=== PATIENT | male | born 1985 | race Caucasian/White ===

== ENCOUNTER 2021-09-22 19:50 | Emergency (ER) | payer SELFPAY ==
[2021-09-22] MEDS ORDERED: Haloperidol Lactate 5 MG/ML SDV IM ONE (20:41)
[2021-09-22] MEDS ORDERED: Benztropine 1 MG Tab PO STA (20:41)
--- NOTE | 2021-09-22 20:50 | EDM.PDOC ---
ED HPI GENERAL MEDICAL PROBLEM - General Chief Complaint: Chest Pain Stated Complaint: CHEST PAIN/NUMBESS LEFT HAND Time Seen by Provider: 09/22/21 19:56 Source of Information: Reports: Patient, Significant Other (Girlfriend) History Limitations: Reports: No Limitations - History of Present Illness INITIAL COMMENTS - FREE TEXT/NARRATIVE: Mr. Resendiz is a very pleasant 35-year-old gentleman who now presents to the ED stating that he felt left upper chest, left axillary, and left upper extremity pain when he woke up around 06:00 this morning. He states that his left upper extremity feels weaker, and that numbness to all 5 of his fingertips has been coming and going all day, typically lasting for a few minutes, then recurring a few minutes later. He states that he developed a central, sharp headache around 19:00 tonight. He denies any vision changes. He has not had any nausea, vomiting, or diaphoresis. He is unsure if he feels dyspneic. He states that he feels tired. No prior similar symptoms. The patient states that he took 200 mg of ibuprofen around 10:30 this morning, then to full-strength aspirin around 15:00 this afternoon. Here in the ED tonight, the patient is found to be hemodynamically stable, afebrile, saturating 99% on room air. He appears to be comfortable, in no acute distress. Prior to 6:00 this morning, the patient denies having a recent fever, chills, sore throat, ear pain, nasal or sinus congestion, cough, dyspnea, chest pain, palpitations, nausea, vomiting, constipation, diarrhea, abdominal pain, urinary symptoms, recent weight gain or weight loss, recent bloody bowel movements or black bowel movements, recent joint aches, headaches, or rashes. The patient does not recall the name of his PCP at [facility]. He has received 2 COVID vaccinations, although no influenza vaccination this season. Left Chest Pain Score (Numeric/FACES): 8 - Related Data Allergies Allergy/AdvReac Type Severity Reaction Status Date / Time respiridal Allergy Severe Seizure Uncoded 09/22/21 20:08 Home Meds: Home Meds Rizatriptan Benzoate [Rizatriptan] 1 tab PO Q2H PRN #3 tab.rapdis 09/22/21 [Rx] buPROPion [Wellbutrin] 300 mg PO DAILY 09/22/21 [History] valACYclovir HCl [Valtrex] 500 mg PO DAILY 09/22/21 [History] Past Medical History Cardiovascular History: Reports: High Cholesterol (untreated) Musculoskeletal History: Reports: Fracture (T12, right ankle), Other (See Below) Psychiatric History: Reports: Depression - Infectious Disease History Infectious Disease History: Reports: Chicken Pox, Herpes - Past Surgical History HEENT Surgical History: Reports: Oral Surgery (dental extractions) Neurological Surgical History: Reports: Spinal Fusion (T11-L1 2012) Musculoskeletal Surgical History: Reports: Arthroscopic Knee (right, 2005), ORIF (right ankle) Social & Family History - Tobacco Use Tobacco Use Status *Q: Never Tobacco User - Caffeine Use Caffeine Use: Reports: Coffee - Alcohol Use Alcohol Use History: No - Recreational Drug Use Recreational Drug Use: No - Living Situation & Occupation Living situation: Reports: , Alone Occupation: Employed (trailer tank truck driver) ED ROS GENERAL - Review of Systems Review Of Systems: Comprehensive ROS is negative, except as noted in HPI. ED EXAM, GENERAL - Physical Exam Exam: See Below Exam Limited By: No Limitations General Appearance: Alert, WD/WN, No Apparent Distress Eye Exam: Bilateral Eye: EOMI, Normal Inspection, PERRL Ears: Normal External Exam, Normal Canal, Hearing Grossly Normal, Normal TMs Nose: Normal Inspection, No Blood, Other (Left nasal mucosal edema) Throat/Mouth: Normal Inspection, Normal Lips, Normal Teeth, Normal Gums, Normal Oropharynx, Normal Voice, No Airway Compromise Head: Atraumatic, Normocephalic Neck: Normal Inspection, Supple, Non-Tender, Full Range of Motion, Other (No modification of the patient's left axillary/left upper extremity symptoms with the patient turning his head completely to the left or right, fully extending, or flexing his neck, or with neck compression) Respiratory/Chest: No Respiratory Distress, Lungs Clear, Normal Breath Sounds, No Accessory Muscle Use, Other (Reproducible tenderness to palpation of the left upper chest) Cardiovascular: Normal Peripheral Pulses, Regular Rate, Rhythm, No Edema, No Gallop, No JVD, No Murmur, No Rub Peripheral Pulses: 3+: Radial (L), Radial (R) GI/Abdominal: Normal Bowel Sounds, Soft, Non-Tender, No Organomegaly, No Distention, No Abnormal Bruit, No Mass Back Exam: Normal Inspection, Full Range of Motion, NT Extremities: Normal Inspection, Normal Range of Motion, No Pedal Edema, Normal Capillary Refill, Other (Reproducible tenderness to palpation of the left axilla) Neurological: Alert, Oriented, CN II-XII Intact, Normal Cognition, Other (Mild weakness to abduction of the left upper extremity, otherwise no focal neurologic deficits. The patient reports some tingling to all 5 fingertips.) Psychiatric: Normal Affect Skin Exam: Warm, Dry, Intact, Normal Color, No Rash #1 Interpretation EKG Date: 09/22/21 Time: 19:57 Rhythm: NSR Rate (Beats/Min): 63 [place]: Normal (Borderline RAD) P-Wave: Present QRS: RBBB (Incomplete. LVH.) ST-T: Elevated (J-point elevation V2V6, inferior leads, but no ischemic changes) QT: Normal Comparison: NA - No Prior EKG Course - Vital Signs Last Recorded V/S: Last Vital Signs Temp 36.7 C 09/22/21 22:17 Pulse 80 09/22/21 22:17 Resp 18 09/22/21 22:17 BP 116/75 09/22/21 22:17 Pulse Ox 100 09/22/21 22:17 - Orders/Labs/Meds Labs: Laboratory Tests 09/22/21 09/22/21 09/22/21 Range/Units 20:40 20:53 20:53 WBC 6.06 (4.23-9.07) K/mm3 RBC 4.98 (4.63-6.08) M/mm3 Hgb 15.1 (13.7-17.5) gm/dl Hct 43.5 (40.1-51.0) % MCV 87.3 (79.0-92.2) fl MCH 30.3 (25.7-32.2) pg MCHC 34.7 (32.2-35.5) g/dl RDW Std Deviation 40.1 (35.1-43.9) fL Plt Count 190 (163-337) K/mm3 MPV 10.6 (9.4-12.3) fl Neutrophils % (Manual) 60 (40-60) % Band Neutrophils % 0 (0-10) % Lymphocytes % (Manual) 28 (20-40) % Atypical Lymphs % 0 % Monocytes % (Manual) 10 (2-10) % Eosinophils % (Manual) 2 (0.8-7.0) % Basophils % (Manual) 0 L (0.2-1.2) Platelet Estimate Adequate Plt Morphology Comment Normal RBC Morph Comment Normal D-Dimer, Quantitative (0.19-0.50) mg/L Sodium 143 (136-145) mEq/L Potassium 4.1 (3.5-5.1) mEq/L Chloride 106 (98-107) mEq/L Carbon Dioxide 30 (21-32) mEq/L Anion Gap 11.1 (5-15) BUN 19 H (7-18) mg/dL Creatinine 1.4 H (0.7-1.3) mg/dL Est Cr Clr Drug Dosing 79.29 mL/min Estimated GFR (MDRD) 57 (>60) mL/min BUN/Creatinine Ratio 13.6 L (14-18) Glucose 94 (70-99) mg/dL Calcium 8.9 (8.5-10.1) mg/dL Magnesium 2.0 (1.8-2.4) mg/dL Total Bilirubin 0.4 (0.2-1.0) mg/dL AST 29 (15-37) U/L ALT 36 (16-63) U/L Alkaline Phosphatase 50 (46-116) U/L Troponin I < 0.017 (0.00-0.056) ng/mL C-Reactive Protein <0.2 (<1.0) mg/dL Total Protein 7.1 (6.4-8.2) g/dl Albumin 4.0 (3.4-5.0) g/dl Globulin 3.1 gm/dL Albumin/Globulin Ratio 1.3 (1-2) SARS-CoV-2 RNA (TYRONE) Negative (NEGATIVE) 09/22/21 Range/Units 20:53 WBC (4.23-9.07) K/mm3 RBC (4.63-6.08) M/mm3 Hgb (13.7-17.5) gm/dl Hct (40.1-51.0) % MCV (79.0-92.2) fl MCH (25.7-32.2) pg MCHC (32.2-35.5) g/dl RDW Std Deviation (35.1-43.9) fL Plt Count (163-337) K/mm3 MPV (9.4-12.3) fl Neutrophils % (Manual) (40-60) % Band Neutrophils % (0-10) % Lymphocytes % (Manual) (20-40) % Atypical Lymphs % % Monocytes % (Manual) (2-10) % Eosinophils % (Manual) (0.8-7.0) % Basophils % (Manual) (0.2-1.2) Platelet Estimate Plt Morphology Comment RBC Morph Comment D-Dimer, Quantitative 0.23 (0.19-0.50) mg/L Sodium (136-145) mEq/L Potassium (3.5-5.1) mEq/L Chloride (98-107) mEq/L Carbon Dioxide (21-32) mEq/L Anion Gap (5-15) BUN (7-18) mg/dL Creatinine (0.7-1.3) mg/dL Est Cr Clr Drug Dosing mL/min Estimated GFR (MDRD) (>60) mL/min BUN/Creatinine Ratio (14-18) Glucose (70-99) mg/dL Calcium (8.5-10.1) mg/dL Magnesium (1.8-2.4) mg/dL Total Bilirubin (0.2-1.0) mg/dL AST (15-37) U/L ALT (16-63) U/L Alkaline Phosphatase (46-116) U/L Troponin I (0.00-0.056) ng/mL C-Reactive Protein (<1.0) mg/dL Total Protein (6.4-8.2) g/dl Albumin (3.4-5.0) g/dl Globulin gm/dL Albumin/Globulin Ratio (1-2) SARS-CoV-2 RNA (TYRONE) (NEGATIVE) Meds: Medications Discontinued Medications Generic Name Dose Route Start Last Admin Trade Name Freq PRN Reason Stop Dose Admin Benztropine Mesylate 1 mg 09/22/21 20:41 09/22/21 20:52 Benztropine 1 Mg Tab PO 09/22/21 20:42 1 mg ONETIME STA Administration Haloperidol Lactate 5 mg 09/22/21 20:41 09/22/21 20:53 Haloperidol Lactate 5 Mg/Ml Sdv IM 09/22/21 20:42 5 mg ONETIME ONE Administration - Re-Assessments/Exams Free Text/Narrative Re-Assessment/Exam: 09/22/21 20:46 The cause of the patient's symptoms is not immediately clear. Cervical radiculopathy has essentially been ruled out, but I cannot rule out a brachial plexus injury. It could also be a migraine. An ECG, obtained at triage, demonstrates diffuse J-point elevations, but no ischemic changes. I have ordered a work-up that includes numerous blood tests, a swab for the SARS-CoV-2 virus, a chest x-ray, and a CT of the head without contrast. In the meantime, the patient will be treated with IM Haldol and oral Cogentin, to see if that modifies his symptoms. 09/22/21 21:41 CT of the head without contrast is read by Vee as "No acute intracranial abnormality." 09/22/21 21:56 Two-view chest radiograph appears to be grossly normal. The cardiac silhouette is within normal limits. No pulmonary vascular congestion. No pleural effusio ns. No focal infiltrate. No pneumothorax. T11, T12, L1 fusion hardware noted. Formal read per the Radiologist pending. The patient's CBC is unremarkable. His CMP is remarkable for a BUN/Cr slightly elevated at 19/1.4, with the remainder of his CMP being unremarkable. His magnesium level is within normal limits at 2.0. His CRP is undetectably low. His troponin is undetectably low. His D-dimer is within normal limits at 0.23. His swab for the SARS-CoV-2 virus is negative. 09/22/21 22:02 Test results discussed with the patient and his girlfriend. The patient reports complete resolution of his symptoms - his headache, as well as his left axillary pain and left upper extremity tingling/numbness. This confirms that his symptoms were due to a migraine. 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 Departure - Departure Time of Disposition: 22:02 Disposition: Home, Self-Care 01 Condition: Good Clinical Impression: Migraine without aura - Discharge Information *PRESCRIPTION DRUG MONITORING PROGRAM REVIEWED*: Not Applicable *COPY OF PRESCRIPTION DRUG MONITORING REPORT IN PATIENT OLIVIA: Not Applicable Prescriptions: Rizatriptan Benzoate [Rizatriptan] 1 tab PO Q2H PRN #3 tab.rapdis PRN Reason: Headache Instructions: Migraine Headache, [id number] Referrals: PCP,Unknown [Primary Care Provider] - Forms: ED Department Discharge Additional Instructions: You were seen in the emergency room after developing left upper chest, left armpit, and left upper arm pain, along with tingling and numbness to your left fingertips, with a weak feeling in your left arm, and a headache. Work-up in the ER included numerous blood tests, a swab for the SARS-CoV-2 virus, a chest x-ray, a CT of your head, and an ECG. Your entire work-up was unremarkable. No abnormalities were found. Your symptoms resolved after you were given the neuroleptic medication Haldol, confirming that your symptoms were due to a migraine. We recommend that you stay adequately hydrated and get plenty of rest tonight in a dark, quiet place. You may resume your usual activities tomorrow. A prescription for the anti-migraine medicine rizatriptan (Maxalt) has been sent to [facility], located in the [facility] across the [address] from the hospital. Dissolve 1 tablet in your mouth, like a lozenge, at the earliest onset of migraine symptoms. You may repeat after 2 hours, if necessary, to a maximum of 3 tablets within a 24-hour period. If any other problems, please do not hesitate to return to the ER.
--- NOTE | 2021-09-23 06:39 | CT ---
Head CT Technique: Multiple axial sections through the brain were obtained. Intravenous contrast was not utilized. Reconstructed coronal and sagittal images were obtained. Comparison: No prior intracranial imaging is available. Findings: Ventricles along with basal cisterns and sulci over the convexities are within normal limits for the patient's age. No abnormal parenchymal densities are seen. No evidence of intracranial hemorrhage is seen. No midline shift or mass-effect is seen. Bone window settings were reviewed. Visualized mastoid sinuses and paranasal sinuses show nothing acute. No acute calvarial abnormality is seen. Impression: 1. Nothing acute is seen on noncontrast head CT study. 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
--- NOTE | 2021-09-23 06:40 | CR ---
Chest: 2 views of the chest were obtained. Comparison: No prior chest imaging is available. Heart size and mediastinum are normal. Lungs are clear with no acute parenchymal change. Prior surgery is noted within the lower thoracic spine. No acute osseous abnormality is otherwise seen. Impression: 1. Prior spine surgery. 2. Nothing acute is otherwise seen on 2-view chest x-ray. Diagnostic code #2
== END 2021-09-22 22:17 | disposition home or self-care (01) ==
LOC: JD.ED 19:50
DX: G43.009 Migraine without aura, not intractable, without status migrainosus (principal); Z88.5 Allergy status to narcotic agent; Z20.822 Contact with and (suspected) exposure to COVID-19
CPT/HCPCS: 36415; 70450; 71046; 80053; 83735; 84484; 85007; 85027; 85379; 86140; 87635; 93005; 96372; 99285; A9270; J1630; U0002

== ENCOUNTER 2022-09-11 16:09 | Emergency (ER) | payer SELFPAY | END 2022-09-11 18:04 | disposition home or self-care (01) | LOC: JD.ED 16:09 | DX: N45.1 Epididymitis (principal); N41.9 Inflammatory disease of prostate, unspecified; Z88.8 Allergy status to other drugs, medicaments and biological substances | CPT/HCPCS: 99283 ==

== ENCOUNTER 2024-02-09 14:43 | Emergency (ER) | payer OTHER ==
[2024-02-09 16:49] LABS: BASOPHILS PERCENT AUTO 0.5 % (0.0-1.0); EOSINOPHILS ABSOLUTE AUTO 0.2 K/mm3 (0.0-0.4); EOSINOPHILS PERCENT AUTO 2.4 % (0.0-6.0); HEMATOCRIT 42.6 % (42.0-52.0); HEMOGLOBIN 15.4 gm/dl (14.0-18.0); IMMATURE GRAN ABSOLUTE AUTO 0.01 K/mm3 (0.00-0.05); IMMATURE GRAN PERCENT AUTO 0.1 % (0.0-0.4); LYMPHOCYTES ABSOLUTE AUTO 2.3 K/mm3 (1.0-4.8); LYMPHOCYTES PERCENT AUTO 30.9 % (24.0-44.0); MEAN CORPUSCULAR HEMOGLOBIN 30.6 pg (28.0-32.0); MEAN CORPUSCULAR HGB CONC 36.2 g/dl (32.0-36.0); MEAN CORPUSCULAR VOLUME 84.7 fl (83.0-99.0); MEAN PLATELET VOLUME 10.5 fl (9.4-12.4); MONOCYTES ABSOLUTE AUTO 0.6 K/mm3 (0.0-0.8); MONOCYTES PERCENT AUTO 8.3 % (0.0-8.0); NEUTROPHILS ABSOLUTE AUTO 4.3 K/mm3 (1.8-7.7); NEUTROPHILS PERCENT AUTO 57.8 % (41.0-71.0); PLATELET COUNT,PLT 205 K/mm3 (150-400); RED BLOOD CELL COUNT 5.03 M/mm3 (4.52-5.90); WHITE BLOOD CELL COUNT,WBC 7.37 K/mm3 (3.9-11.3)
[2024-02-09 17:10] LABS: A/G RATIO 1.3 (1-2); ANION GAP 12.7 (5-15); BILIRUBIN TOTAL 0.4 mg/dL (0.2-1.0); BUN/CREATININE RATIO 17.9 (14-18); C-REACTIVE PROTEIN 0.12 mg/dL (<0.30); CALCIUM 8.9 mg/dL (8.5-10.1); CREATININE 1.4 mg/dL (0.7-1.3); EST CRCL DRUG DOSING (CG) 76.98 mL/min; POTASSIUM,K 3.7 mEq/L (3.5-5.1)
[2024-02-09 17:11] LABS: APPEARANCE,URINE CLEAR (Clear); BILIRUBIN,URINE NEGATIVE (Negative); COLOR,URINE YELLOW (Yellow); GLUCOSE,URINE NEGATIVE (Negative); KETONES,URINE NEGATIVE (Negative); LEUKOCYTE ESTERASE,URINE NEGATIVE (Negative); NITRITE,URINE NEGATIVE (Negative); OCCULT BLOOD,URINE NEGATIVE (Negative); PH,URINE 6.5 (5.0-8.0); PROTEIN,URINE NEGATIVE (Negative); UROBILINOGEN,URINE 0.2 (0.2-1.0)
[2024-02-09 22:10] LABS: RBC,URINE 0-5 /hpf (0-5); SQUAMOUS EPITHELIAL CELLS,UR NOT SEEN /hpf (0-5); WBC,URINE 0-5 /hpf (0-5)
[2024-02-09 22:11] LABS: BACTERIA,URINE OCCASIONAL /hpf (FEW); MUCUS,URINE NOT SEEN /hpf (FEW)
== END 2024-02-09 18:28 | disposition home or self-care (01) ==
LOC: JD.ED 14:43
DX: T59.6X1A Toxic effect of hydrogen sulfide, accidental (unintentional), initial encounter (principal); J68.9 Unspecified respiratory condition due to chemicals, gases, fumes and vapors; Z88.8 Allergy status to other drugs, medicaments and biological substances; Z79.899 Other long term (current) drug therapy; Z86.19 Personal history of other infectious and parasitic diseases
CPT/HCPCS: 36415; 71046; 71046-26; 80053; 81001; 82375; 85025; 86140; 99284

== ENCOUNTER 2025-05-06 16:23 | Emergency (ER) | payer BC ==
[2025-05-06 17:12] LABS: APPEARANCE,URINE CLEAR (Clear); GLUCOSE,URINE NEGATIVE (Negative); OCCULT BLOOD,URINE NEGATIVE (Negative)
[2025-05-06 17:21] LABS: BUPRENORPHINE SCREEN,URINE NEGATIVE (CUTOFF=10); METHADONE SCREEN, URINE NEGATIVE (CUT0FF=200); METHAMPHETAMINES SCREEN, URINE NEGATIVE (CUTOFF=500); OXYCODONE SCREEN,URINE NEGATIVE (CUT0FF=100); THC SCREEN,URINE 20 NG/ML NEGATIVE (CUTOFF=50)
[2025-05-06 17:33] LABS: AMPHETAMINES SCREEN, URINE NEGATIVE (CUTOFF=500)
[2025-05-06 18:11] LABS: BASOPHILS ABSOLUTE AUTO 0.0 K/mm3 (0.0-0.2); BASOPHILS PERCENT AUTO 0.4 % (0.0-1.0); EOSINOPHILS ABSOLUTE AUTO 0.1 K/mm3 (0.0-0.4); EOSINOPHILS PERCENT AUTO 1.8 % (0.0-6.0); IMMATURE GRAN ABSOLUTE AUTO 0.02 K/mm3 (0.00-0.05); IMMATURE GRAN PERCENT AUTO 0.3 % (0.0-0.4); LYMPHOCYTES ABSOLUTE AUTO 1.9 K/mm3 (1.0-4.8); LYMPHOCYTES PERCENT AUTO 28.1 % (24.0-44.0); MEAN PLATELET VOLUME 10.3 fl (9.4-12.4); MONOCYTES ABSOLUTE AUTO 0.5 K/mm3 (0.0-0.8); MONOCYTES PERCENT AUTO 7.0 % (0.0-8.0); NEUTROPHILS ABSOLUTE AUTO 4.2 K/mm3 (1.8-7.7); NEUTROPHILS PERCENT AUTO 62.4 % (41.0-71.0); NRBC ABSOLUTE 0.00 (0.00-0.02); NRBC PERCENT 0.0 % (0.0-0.2); PLATELET COUNT,PLT 182 K/mm3 (150-400); RED BLOOD CELL COUNT 4.84 M/mm3 (4.52-5.90); WHITE BLOOD CELL COUNT,WBC 6.72 K/mm3 (3.9-11.3)
[2025-05-06 18:47] LABS: A/G RATIO 1.4 (1-2); ALANINE AMINOTRANSFERASE,ALT 31 U/L (16-63); ASPARTATE AMNIOTRANSFERASE,AST 22 U/L (15-37); BILIRUBIN TOTAL 0.5 mg/dL (0.2-1.0); BLOOD UREA NITROGEN,BUN 12 mg/dL (7-18); CARBON DIOXIDE,CO2 28 mEq/L (21-32); CHLORIDE,CL 106 mEq/L (98-107); CREATINE KINASE,CK 119 U/L (39-308); CREATININE 1.3 mg/dL (0.7-1.3); ESTIMATED GFR 71 mL/min (>60); GLUCOSE RANDOM 81 mg/dL (70-99); POTASSIUM,K 4.0 mEq/L (3.5-5.1); PROTEIN TOTAL,TP 6.6 g/dl (6.4-8.2); SODIUM,NA 141 mEq/L (136-145); TSH 1.843 uIU/mL (0.358-3.74)
[2025-05-06 18:52] LABS: ETHANOL BLOOD MEDICAL 0.00 gm% (0.00); TROPONIN I HIGH SENSITIVITY < 4 pg/mL (<=76)
== END 2025-05-06 20:15 | disposition home or self-care (01) ==
LOC: JD.ED 16:23
DX: R41.3 Other amnesia (principal); R41.89 Other symptoms and signs involving cognitive functions and awareness; Z88.8 Allergy status to other drugs, medicaments and biological substances; Z79.899 Other long term (current) drug therapy
CPT/HCPCS: 36415; 70450; 70450-26; 80053; 80143; 80179; 80306; 80307; 81003; 82550; 83690; 83735; 84443; 84484; 85025; 86592; 86803; 93005; 93010; 99285; G0433